=== PATIENT | male | born 1970 | race Caucasian/White ===

== ENCOUNTER 2016-10-04 08:26 | Emergency (ER) | payer OTHER ==
--- NOTE | 2016-10-04 08:43 | UC ---
Hand/Wrist HPI - HPI Summary HPI Summary: 46 yo male with PMH of HTN, HLD who presents with c/o of right hand edema and wrist, thumb pain. He reports he was bite by his dog 3 weeks ago on the wrist which healed well within 1 week w/o any issues or noted infection. The patient reports 5 days ago he was at work using his right hand squeezing dough from a container which he reports as strenuous. He then noticed the next day his wrist and thumb were "tender". Yesterday he performed the same task and noticed last night the top of his hand was swollen, warm to touch and a little red. Today the swelling, warmness and redness did not resolve so he came to have it evaluated. He complains of limited ROM and tenderness right wrist and thumb tenderness. No fevers or chills. Otherwise feels that he is in his normal state of health. His dog is up to date on rabies vaccine. - History Of Current Complaint Chief Complaint: UCUpperExtremity Stated Complaint: RIGHT WRIST PAIN Time Seen by Provider: 10/04/16 08:42 Hx Obtained From: Patient Onset/Duration: Gradual Onset, Lasting Days - started last evening Severity Initially: Mild Severity Currently: Mild Pain Intensity: 2 Pain Scale Used: 0-10 Numeric Character Of Pain: Aching Aggravating Factor(s): Lifting, Flexion - R wrist, Extension - R wrist Alleviating: Nothing Associated Signs And Symptoms: Positive: Swelling, Redness. Negative: Fever, Weakness - Risk Factors Compartment Syndrome Risk Factors: Pain - Allergies/Home Medications Allergies/Adverse Reactions: Allergies Allergy/AdvReac Type Severity Reaction Status Date / Time No Known Allergies Allergy Verified 10/04/16 08:31 Home Medications: Home Medications Bp Medication DAILY 10/04/16 [History] Cholesterol Medication DAILY 10/04/16 [History] Ibuprofen [Advil] 400 mg PO ONCE PRN 10/04/16 [History Confirmed 10/04/16] PMH/Surg Hx/FS Hx/Imm Hx Previously Healthy: No Cardiovascular History Of: Reports: Hypertension - Surgical History Surgical History: None - Family History Known Family History: Positive: Hypertension - Social History Occupation: Employed Full-time Lives: With Family Alcohol Use: None Substance Use Type: None Smoking Status (MU): Former Smoker Have You Smoked in the Last Year: No When Did the Patient Quit Smoking/Using Tobacco: 2000 - Immunization History Most Recent Tetanus Shot: unknown Hx Tetanus, Diphtheria Vaccination: Yes Vaccination Up to Date: Yes Review of Systems Constitutional: Negative Skin: Other - right hand swelling, mild redness Eyes: Negative ENT: Negative Respiratory: Negative Cardiovascular: Negative Gastrointestinal: Negative Genitourinary: Negative Motor: Negative Neurovascular: Negative Musculoskeletal: Negative Neurological: Negative Psychological: Negative All Other Systems Reviewed And Are Negative: Yes Physical Exam Triage Information Reviewed: Yes Appearance: Well-Appearing, Well-Nourished Vital Signs: Initial Vital Signs Temp 97.8 F 10/04/16 08:32 Pulse 54 10/04/16 08:32 Resp 18 10/04/16 08:32 BP 143/84 10/04/16 08:32 Pulse Ox 100 10/04/16 08:32 Vital Signs Reviewed: Yes Eye Exam: Normal Eyes: Positive: Conjunctiva Clear Neck: Positive: Supple, Nontender, No Lymphadenopathy Respiratory: Positive: Chest non-tender, Lungs clear, Normal breath sounds, No respiratory distress, No accessory muscle use Cardiovascular: Positive: RRR, No Murmur, Pulses Normal, Brisk Capillary Refill Musculoskeletal: Positive: Strength Intact, ROM Limited @ - extension/flexion - guarded., Edema @ - right dorsal hand; with mild erythema, warm to touch; tender to palpation over dorsal and plantar carpal tendons Neurological: Positive: Alert Hand/Wrist Course/Dx - Course Course Of Treatment: 1. augmentin. rest, ice, compression, elevation. Close f/u with PCP - Differential Dx/Diagnosis Differential Diagnosis/HQI/PQRI: Cellulitis, Sprain, Strain, Tendonitis Provider Diagnoses: 1. Cellulitis. 2. Tendinitis Discharge - Discharge Plan Condition: Stable Disposition: HOME Prescriptions: Amoxicillin/Clavulanate TAB* [Augmentin TAB 875*] 875 mg PO BID #20 tab Patient Education Materials: Tendinitis (ED), Cellulitis (ED) Referrals: Trev Lucas MD [Primary Care Provider] - 2 Days (close follow up in 2-3 days) Additional Instructions: Please follow up with your primary care provider in 2-3 days. Rest, compression , elevation, ice, antibiotics. Complete full course of prescribed antibiotics. Increase your intake of probiotic foods or take a daily probiotic. If you have any worsening or concerning symptoms immediately see your primary, return here or go to the emergency department.
[2016-10-04 08:59] VITALS: BP 143/84
--- NOTE | 2016-10-04 09:33 | RAD ---
HISTORY: Right hand and wrist pain and penetrating trauma COMPARISONS: None VIEWS: 7, Frontal, lateral, and oblique views of the right hand and wrist FINDINGS: BONE DENSITY: Normal. BONES: There is no displaced fracture. There is no appreciable erosion or periosteal reaction JOINTS: There is no arthropathy. ALIGNMENT: There is no dislocation. SOFT TISSUES: There is soft tissue swelling along the dorsum of the hand and wrist OTHER FINDINGS: None. IMPRESSION: SOFT TISSUE SWELLING. NO ACUTE OSSEOUS INJURY. NO APPRECIABLE EROSION OR PERIOSTEAL REACTION IF SYMPTOMS PERSIST, RECOMMEND REPEAT IMAGING.
== END 2016-10-04 09:55 | disposition home or self-care (01) ==
LOC: UCCORT 08:26
DX: L03.113 Cellulitis of right upper limb (principal); M77.9 Enthesopathy, unspecified; I10 Essential (primary) hypertension; Z87.891 Personal history of nicotine dependence
CPT/HCPCS: 99202; G0463

== ENCOUNTER 2017-09-05 10:54 | Emergency (ER) | payer OTHER ==
[2017-09-05 11:57] VITALS: BP 125/78
--- NOTE | 2017-09-05 12:57 | UC ---
Respiratory Complaint HPI - HPI Summary HPI Summary: chest congestion and cough x 7 days had the flu last week with cough, sore throat, fever, chills feeling better now , cont. to have productive cough - History of Current Complaint Chief Complaint: UCRespiratory Stated Complaint: COUGH/STRUGGLE SWALLOWING Time Seen by Provider: 09/05/17 12:48 Hx Obtained From: Patient Onset/Duration: Gradual Onset, Lasting Days - 7, Still Present Timing: Constant Severity Initially: Moderate Severity Currently: Mild Pain Intensity: 0 Character: Cough: Productive Aggravating Factors: Exertion, Deep Breaths Alleviating Factors: Nothing Associated Signs And Symptoms: Positive: Fever, Chills, Wheezing, URI, Nasal Congestion - Allergies/Home Medications Allergies/Adverse Reactions: Allergies Allergy/AdvReac Type Severity Reaction Status Date / Time No Known Allergies Allergy Verified 09/05/17 11:56 PMH/Surg Hx/FS Hx/Imm Hx Previously Healthy: Yes - Surgical History Surgical History: None - Family History Known Family History: Positive: Hypertension - Social History Alcohol Use: Rare Substance Use Type: None Smoking Status (MU): Former Smoker Have You Smoked in the Last Year: No When Did the Patient Quit Smoking/Using Tobacco: 2000 - Immunization History Most Recent Tetanus Shot: unknown Hx Tetanus, Diphtheria Vaccination: Yes Vaccination Up to Date: Yes Review of Systems Constitutional: Fever, Chills, Fatigue Skin: Negative Eyes: Negative ENT: Sore Throat, Nasal Discharge Respiratory: Cough Cardiovascular: Negative Gastrointestinal: Negative Is Patient Immunocompromised?: No All Other Systems Reviewed And Are Negative: Yes Physical Exam Triage Information Reviewed: Yes Appearance: Well-Appearing, No Pain Distress, Well-Nourished Vital Signs: Initial Vital Signs Temp 97.4 F 09/05/17 11:53 Pulse 60 09/05/17 11:53 Resp 18 09/05/17 11:53 BP 125/78 09/05/17 11:53 Pulse Ox 99 09/05/17 11:53 Vital Signs Reviewed: Yes Eye Exam: Normal Eyes: Positive: Conjunctiva Clear ENT: Positive: Normal ENT inspection, Hearing grossly normal, Pharynx normal, Nasal drainage Neck exam: Normal Neck: Positive: Supple, Nontender, No Lymphadenopathy Respiratory Exam: Normal Respiratory: Positive: Chest non-tender, Lungs clear, Normal breath sounds, No respiratory distress Cardiovascular: Positive: RRR, No Murmur, Pulses Normal Skin Exam: Normal UC Diagnostic Evaluation - Laboratory O2 Sat by Pulse Oximetry: 99 Respiratory Course/Dx - Differential Dx/Diagnosis Provider Diagnoses: viral illness Discharge - Discharge Plan Condition: Stable Disposition: HOME Patient Education Materials: Viral Syndrome (ED) Referrals: Trev Lucas MD [Primary Care Provider] - If Needed
== END 2017-09-05 12:57 | disposition home or self-care (01) ==
LOC: UCCORT 10:54
DX: B34.9 Viral infection, unspecified (principal); Z87.891 Personal history of nicotine dependence
CPT/HCPCS: 99211; G0463

== ENCOUNTER 2018-11-29 09:29 | Emergency (ER) | payer OTHER ==
[2018-11-29 09:59] VITALS: BP 138/97
--- NOTE | 2018-11-29 10:17 | UC ---
Skin Complaint HPI - HPI Summary HPI Summary: Pt presents with c/o swelling, tenderness and discharge from left great toe. Pt states that he has an ingrown toenail that he tried to remove. States that he has this happen frequently and normally "heals up faster" - History of Current Complaint Chief Complaint: UCSkin Time Seen by Provider: 11/29/18 10:12 Stated Complaint: RIGHT GREAT TOE PAIN Hx Obtained From: Patient Onset/Duration: Gradual Onset, Lasting Days, Still Present, Worse Since - osnet Skin Exposure Onset/Duration: Days Ago Timing: Constant Onset Severity: Mild Current Severity: Moderate Pain Intensity: 2 Location: Discrete Character: Swelling, Pain, Redness, Raised, Painful Aggravating Factor(s): Touch Alleviating Factor(s): Nothing Associated Signs & Symptoms: Positive: Drainage, Tenderness - Allergy/Home Medications Allergies/Adverse Reactions: Allergies Allergy/AdvReac Type Severity Reaction Status Date / Time No Known Allergies Allergy Verified 11/29/18 09:54 Home Medications: Home Medications Atorvastatin* [Lipitor 10 MG*] 10 mg PO DAILY 11/29/18 [History Confirmed ] Lisinopril TAB* [Prinivil TAB 10 MG*] 10 mg PO DAILY 11/29/18 [History Confirmed 11/29/18] Neomycin/Polym/Bacit TOP OINT* [Neosporin TOP OINT TUBE*] 1 applic TOPICAL BID PRN 11/29/18 [History Confirmed 11/29/18] PMH/Surg Hx/FS Hx/Imm Hx Previously Healthy: Yes - Surgical History Surgical History: None - Family History Known Family History: Positive: Hypertension - Social History Occupation: Employed Full-time Lives: With Family Alcohol Use: Rare Substance Use Type: None Smoking Status (MU): Former Smoker Have You Smoked in the Last Year: No When Did the Patient Quit Smoking/Using Tobacco: 2000 - Immunization History Most Recent Tetanus Shot: unknown Hx Tetanus, Diphtheria Vaccination: Yes Vaccination Up to Date: Yes Review of Systems All Other Systems Reviewed And Are Negative: Yes Constitutional: Positive: Negative Skin: Positive: Other - erythema, drainage Eyes: Positive: Negative ENT: Positive: Negative Respiratory: Positive: Negative Cardiovascular: Positive: Negative Gastrointestinal: Positive: Negative Genitourinary: Positive: Negative Motor: Positive: Negative Neurovascular: Positive: Negative Musculoskeletal: Positive: Edema - left great toe lateral aspect of toenail, Myalgia Neurological: Positive: Negative Psychological: Positive: Negative Is Patient Immunocompromised?: No Physical Exam Triage Information Reviewed: Yes Appearance: Well-Appearing Vital Signs: Initial Vital Signs Temp 98.6 F 11/29/18 09:51 Pulse 66 11/29/18 09:51 Resp 16 11/29/18 09:51 BP 138/97 11/29/18 09:51 Pulse Ox 99 11/29/18 09:51 Vital Signs Reviewed: Yes Eye Exam: Normal ENT Exam: Normal Dental Exam: Normal Neck exam: Normal Respiratory Exam: Normal Respiratory: Positive: No respiratory distress Musculoskeletal: Positive: Edema @ - left great toe Neurological Exam: Normal Psychological Exam: Normal Skin Exam: Other - drainage, erythema left great toe at lateral aspect of nail bed. Course/Dx - Differential Diagnoses - Skin Complaint Differential Diagnoses: Cellulitis - Diagnoses Provider Diagnosis: Ingrown toenail of left foot with infection Discharge - Sign-Out/Discharge Documenting (check all that apply): Patient Departure All imaging exams completed and their final reports reviewed: No Studies - Discharge Plan Condition: Stable Disposition: HOME Prescriptions: Cephalexin CAP* [Keflex 500 CAP*] 500 mg PO Q8H #30 cap Patient Education Materials: Wound Infection (DC), Ingrown Nail (ED) Referrals: Trev Lucas MD [Primary Care Provider] - If Needed - Billing Disposition and Condition Condition: STABLE Disposition: Home
== END 2018-11-29 10:25 | disposition home or self-care (01) ==
LOC: UCCORT 09:29
DX: L60.0 Ingrowing nail (principal); L08.89 Other specified local infections of the skin and subcutaneous tissue; Z87.891 Personal history of nicotine dependence
CPT/HCPCS: 99212; G0463